=== PATIENT | male | born 1940 | race Caucasian/White ===

== ENCOUNTER 2017-02-03 13:10 | Emergency (ER) | payer MEDICARE, OTHER ==
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
[2017-02-03 13:29] LABS: BASOPHILS ABSOLUTE 0.09 10/3/uL (0.0-0.16); EOSINOPHILS 6.9 %; EOSINOPHILS ABSOLUTE 0.64 10/3/uL (0.0-0.53); ER CBC TAT 0 Hrs 05 Mins; HEMATOCRIT 48.5 % (40.0-51.0); HEMOGLOBIN 16.6 g/dL (13.6-17.8); IMMATURE GRANULOCYTES 0.2 %; IMMATURE GRANULOCYTES ABSOLUTE 0.02 10/3/uL (0.0-0.11); LYMPHOCYTES 25.1 %; LYMPHOCYTES ABSOLUTE 2.34 10/3/uL (0.67-4.30); MANUAL DIFF NO %; MEAN CORPUS HGB CONC 34.2 g/dL (32.0-36.0); MEAN CORPUSCULAR HEMOGLOB 33.5 pg (26.0-34.0); MEAN PLATELET VOLUME 10.9 fL (9.2-13.0); MONOCYTES 7.9 %; MONOCYTES ABSOLUTE 0.74 10/3/uL (0.21-1.20); NEUTROPHILS 58.9 %; NEUTROPHILS ABSOLUTE 5.51 10/3/uL (2.02-8.40); PLATELET COUNT 184 10/3/uL (150-400); RBC DISTRIBUTION WIDTH 13.5 % (12.0-16.0); RED CELL COUNT 4.95 10/6/uL (4.7-6.1); WHITE BLOOD CELLS 9.3 10/3/uL (4.5-10.5)
[2017-02-03 13:46] LABS: A/G RATIO 0.7 (0.7-1.9); ALBUMIN 3.4 G/DL (3.5-5.0); ALKALINE PHOSPHATASE 94 U/L (45-117); BUN (BLOOD UREA NITROGEN) 19 MG/DL (6-23); CALCIUM, SERUM 9.2 MG/DL (8.5-10.4); CHLORIDE, SERUM 104 MMOL/L (96-112); CO2 (CARBON DIOXIDE) 31 MMOL/L (24-34); CREATININE 1.21 MG/DL (0.70-1.30); GFR AFRICAN AMERICAN 67 ML/MIN (>=60); GFR NON AFRICAN AMERICAN 58 ML/MIN (>=60); GLOBULIN 4.7 G/DL (2.5-4.1); GLUCOSE, SERUM 93 MG/DL (60-99); POTASSIUM, SERUM 4.3 MMOL/L (3.5-5.3); SGOT(AST) 19 U/L (5-40); SGPT(ALT) 22 U/L (5-65); SODIUM, SERUM 139 MMOL/L (135-148); TOTAL BILIRUBIN 0.5 MG/DL (0-1.2); TOTAL PROTEIN 8.1 G/DL (6.0-8.5)
[2017-02-03] MEDS ORDERED: RELA5 PO (15:56)
[2017-02-03] MEDS ORDERED: VITC500 PO (15:56)
[2017-02-03] MEDS ORDERED: VITE PO (15:57)
[2017-02-03] MEDS ORDERED: VITAMIN D1000 UNI1 PO (15:58)
[2017-02-03] MEDS ORDERED: SUPER B COMP PO (15:58)
[2017-02-03] MEDS ORDERED: FISH-EPA1000 MG PO (15:58)
[2017-02-03] MEDS ORDERED: GLUCOSAMINE PO (15:59)
[2017-02-03] MEDS ORDERED: MSM PO (15:59)
[2017-02-03] MEDS ORDERED: ASAB PO ×2 (15:59→16:00)
[2017-02-03] MEDS ORDERED: LIPITOR20 PO (16:00)
[2017-02-03] MEDS ORDERED: ZITH250 PO (16:01)
[2017-02-03] MEDS ORDERED: GARLIC TABLET PO (16:01)
[2017-02-03] MEDS ORDERED: L20 PO (16:02)
[2017-02-03] MEDS ORDERED: ALEVE220 MG PO (16:02)
[2017-02-03] MEDS ORDERED: PEP20 PO (16:04)
[2017-02-03] MEDS ORDERED: PROVHFA INH (16:05)
[2017-02-03] MEDS ORDERED: POTASSIUM GLUCO99 MG PO (16:05)
[2017-02-03] MEDS ORDERED: CLARIT10 PO (16:06)
[2017-02-03] MEDS ORDERED: ALBUTEROL0.083 % INH (16:06)
== END 2017-02-03 18:07 | disposition admitted as inpatient to this hospital (09) ==
LOC: ER 13:10
PROVIDERS: Hospitalist
DX: J44.1 Chronic obstructive pulmonary disease with (acute) exacerbation (principal); I10 Essential (primary) hypertension; Z88.5 Allergy status to narcotic agent; Z88.0 Allergy status to penicillin; Z79.82 Long term (current) use of aspirin; Z79.899 Other long term (current) drug therapy
CPT/HCPCS: 71020; 80053; 83880; 85025; 87040; 87070; 87205; 93005; 96374; 96375; 99284; A9270-GY; J2920